=== PATIENT | female | born 1930 | race Caucasian/White ===

== ENCOUNTER 2018-01-25 18:20 | Inpatient (IN) | payer MEDICARE, OTHER ==
[~2018-01-25] VITALS: Ht 165.1 cm; Wt 66.5 kg
[2018-01-25] MEDS ORDERED: SODIUM CHLORIDE FLUSH 10ML SYR IVF ONE (19:00)
[2018-01-25] MEDS ORDERED: MULT-717 PO (19:25)
[2018-01-25] MEDS ORDERED: FOSI40TA2 PO (19:25)
[2018-01-25] MEDS ORDERED: FURO20TA3 PO (19:25)
[2018-01-25] MEDS ORDERED: GLIP5TAB10 PO (19:25)
[2018-01-25] MEDS ORDERED: ALLO300T PO (19:25)
[2018-01-25] MEDS ORDERED: SIMV40TA3 PO (19:25)
[2018-01-25] MEDS ORDERED: SITA50TA PO (19:25)
[2018-01-25 19:26] LABS: BASOPHILS # (AUTO) 0.09 x10^3/uL (0-0.1); BASOPHILS % (AUTO) 1 % (0-1); EOSINOPHILS % (AUTO) 0 % (1-7); LYMPHOCYTES # (AUTO) 0.52 x10^3/uL (1-3.4); LYMPHOCYTES % (AUTO) 5 % (22-44); MD NO; MEAN CORPUSCULAR HEMOGLOBIN 31.7 pg (27.0-34.8); MEAN CORPUSCULAR HGB CONC 33.2 g/dL (32.4-35.8); MEAN CORPUSCULAR VOLUME 95.4 fL (80-100); MEAN PLATELET VOLUME 8.7 fL (7.4-10.4); MONOCYTES # (AUTO) 0.98 x10^3/uL (0.2-0.8); MONOCYTES % (AUTO) 9 % (2-9); NEUTROPHILS # (AUTO) 9.72 x10^3/uL (1.8-6.8); NEUTROPHILS % (AUTO) 86 % (42-75); PLATELET COUNT 309 x10^3/uL (130-400); RED BLOOD COUNT 3.65 x10^6/uL (3.82-5.3); RED CELL DISTRIBUTION WIDTH 14.3 % (9.6-15.2)
[2018-01-25 19:34] LABS: ALBUMIN 2.9 g/dL (3.4-5.0); ANION GAP 12 mmol/L (5-15); CALCIUM 9.3 mg/dL (8.5-10.1); CHLORIDE 103 mmol/L (98-107); INTERNATIONAL NORMALIZED RATIO 0.96 (0.93-1.1)
[2018-01-25 19:41] LABS: CREATININE 2.01 mg/dL (0.55-1.02); TROPONIN I < 0.015 ng/mL (0.000-0.045)
[2018-01-25] MEDS ORDERED: SODIUM CHLORIDE 0.9% 1,000 ML IV ONE (20:25)
[2018-01-25] MEDS ORDERED: MORPHINE SULFATE 4 MG/ML, 1ML IVPush PRN (20:30)
[2018-01-25] MEDS ORDERED: ONDANSETRON ODT 4 MG PO PRN (21:30)
[2018-01-25] MEDS ORDERED: TRAZODONE 50MG TABLET PO PRN (21:30)
[2018-01-25] MEDS ORDERED: ACETAMINOPHEN 325 MG TABLET PO PRN (21:30)
[2018-01-25] MEDS ORDERED: LABETALOL 5MG/ML, 20ML IVPush PRN (21:30)
[2018-01-26] VITALS (7 sets, daily range): BP systolic 56–126; BP diastolic 48–69
[2018-01-26 02:10] LABS: BASOPHILS # (AUTO) 0.08 x10^3/uL (0-0.1); BASOPHILS % (AUTO) 1 % (0-1); EOSINOPHILS # (AUTO) 0.01 x10^3/uL (0-0.4); EOSINOPHILS % (AUTO) 0 % (1-7); LYMPHOCYTES # (AUTO) 1.02 x10^3/uL (1-3.4); LYMPHOCYTES % (AUTO) 10 % (22-44); MD NO; MEAN CORPUSCULAR HEMOGLOBIN 31.8 pg (27.0-34.8); MEAN CORPUSCULAR HGB CONC 33.4 g/dL (32.4-35.8); MEAN CORPUSCULAR VOLUME 95.1 fL (80-100); MEAN PLATELET VOLUME 8.5 fL (7.4-10.4); MONOCYTES # (AUTO) 0.94 x10^3/uL (0.2-0.8); MONOCYTES % (AUTO) 9 % (2-9); NEUTROPHILS # (AUTO) 8.28 x10^3/uL (1.8-6.8); NEUTROPHILS % (AUTO) 80 % (42-75); PLATELET COUNT 285 x10^3/uL (130-400); RED BLOOD COUNT 3.31 x10^6/uL (3.82-5.3); RED CELL DISTRIBUTION WIDTH 14.4 % (9.6-15.2)
[2018-01-26 02:25] LABS: TROPONIN I < 0.015 ng/mL (0.000-0.045)
[2018-01-26 05:48] LABS: CULTURE INDICATED? YES; MICROSCOPIC INDICATED
[2018-01-26] MEDS: INSULIN LISPRO 100 UNITS/ML, PEN SQ-INSULIN SCH ×4 (07:00→21:02)
[2018-01-26 08:00] LABS: CALCIUM 9.4 mg/dL (8.5-10.1); CHOLESTEROL, TOTAL 103 mg/dL (140-239); TRIGLYCERIDES 75 mg/dL (50-200); VLDL CHOLESTEROL 15 mg/dL (0-25)
[2018-01-26] MEDS: CEFTRIAXONE PMX 1GM/50ML 50 ML IV SCH (08:00)
[2018-01-26] MEDS: FOSINOPRIL 20MG TABLET PO SCH (08:00)
[2018-01-26 08:04] LABS: CHOL/HDL RATIO 2.7; HDL CHOL % 37 % (28-40); HDL CHOLESTEROL (DIRECT) 38 mg/dL (40-60); LDL CHOLESTEROL,CALCULATED 50 mg/dL (54-169); LDL/HDL RATIO 1.3 (0.5-3.0); TROPONIN I < 0.015 ng/mL (0.000-0.045)
[2018-01-26 08:10] LABS: ANION GAP 11 mmol/L (5-15); CHLORIDE 107 mmol/L (98-107)
[2018-01-26] MEDS ORDERED: DEXTROSE 4 GM TAB.CHEW PO PRN (12:30)
[2018-01-26] MEDS ORDERED: GLUCAGON 1 MG IM PRN (12:30)
[2018-01-26] MEDS ORDERED: DEXTROSE 50%, 50ML SYRINGE IVPush PRN (12:30)
[2018-01-26] MEDS: SIMVASTATIN 40 MG TABLET PO SCH (21:01)
[2018-01-26] MEDS: SODIUM CHLORIDE FLUSH 10ML SYR IVF SCH (21:02)
[2018-01-27] VITALS (8 sets, daily range): BP systolic 96–123; BP diastolic 54–62
[2018-01-27 05:22] LABS: BASOPHILS # (AUTO) 0.01 x10^3/uL (0-0.1); BASOPHILS % (AUTO) 0 % (0-1); EOSINOPHILS % (AUTO) 0 % (1-7); LYMPHOCYTES # (AUTO) 1.26 x10^3/uL (1-3.4); LYMPHOCYTES % (AUTO) 11 % (22-44); MD NO; MEAN CORPUSCULAR HEMOGLOBIN 30.9 pg (27.0-34.8); MEAN CORPUSCULAR HGB CONC 32.7 g/dL (32.4-35.8); MEAN CORPUSCULAR VOLUME 94.5 fL (80-100); MEAN PLATELET VOLUME 9.2 fL (7.4-10.4); MONOCYTES # (AUTO) 0.99 x10^3/uL (0.2-0.8); MONOCYTES % (AUTO) 9 % (2-9); NEUTROPHILS # (AUTO) 9.08 x10^3/uL (1.8-6.8); NEUTROPHILS % (AUTO) 80 % (42-75); PLATELET COUNT 295 x10^3/uL (130-400); RED CELL DISTRIBUTION WIDTH 14.3 % (9.6-15.2)
[2018-01-27 05:38] LABS: CHLORIDE 107 mmol/L (98-107)
[2018-01-27 05:48] LABS: ALANINE AMINOTRANSFERASE 74 U/L (12-78); ALBUMIN 2.1 g/dL (3.4-5.0); ALKALINE PHOSPHATASE 77 U/L (45-117); ANION GAP 10 mmol/L (5-15); BILIRUBIN,TOTAL 0.5 mg/dL (0.2-1.0); CALCIUM 9.1 mg/dL (8.5-10.1); CREATININE 1.64 mg/dL (0.55-1.02); TOTAL PROTEIN 6.7 g/dL (6.4-8.2)
[2018-01-27] MEDS: CEFTRIAXONE PMX 1GM/50ML 50 ML IV SCH (06:56)
[2018-01-27] MEDS: INSULIN LISPRO 100 UNITS/ML, PEN SQ-INSULIN SCH ×4 (07:00→20:04)
[2018-01-27] MEDS: FOSINOPRIL 20MG TABLET PO SCH (07:44)
[2018-01-27] MEDS: SODIUM CHLORIDE FLUSH 10ML SYR IVF SCH ×2 (07:45→20:05)
[2018-01-27] MEDS: SIMVASTATIN 40 MG TABLET PO SCH (20:05)
[2018-01-28 01:07] VITALS: BP 100/62
[2018-01-28 05:14] LABS: BASOPHILS # (AUTO) 0.05 x10^3/uL (0-0.1); BASOPHILS % (AUTO) 1 % (0-1); EOSINOPHILS # (AUTO) 0.16 x10^3/uL (0-0.4); EOSINOPHILS % (AUTO) 2 % (1-7); LYMPHOCYTES # (AUTO) 1.52 x10^3/uL (1-3.4); LYMPHOCYTES % (AUTO) 16 % (22-44); MD NO; MEAN CORPUSCULAR HEMOGLOBIN 31.8 pg (27.0-34.8); MEAN CORPUSCULAR HGB CONC 32.9 g/dL (32.4-35.8); MEAN CORPUSCULAR VOLUME 96.5 fL (80-100); MEAN PLATELET VOLUME 9.3 fL (7.4-10.4); MONOCYTES # (AUTO) 0.62 x10^3/uL (0.2-0.8); MONOCYTES % (AUTO) 6 % (2-9); NEUTROPHILS # (AUTO) 7.31 x10^3/uL (1.8-6.8); NEUTROPHILS % (AUTO) 76 % (42-75); PLATELET COUNT 277 x10^3/uL (130-400); RED BLOOD COUNT 3.24 x10^6/uL (3.82-5.3); RED CELL DISTRIBUTION WIDTH 14.6 % (9.6-15.2)
[2018-01-28 05:23] LABS: CHLORIDE 109 mmol/L (98-107)
[2018-01-28 05:29] LABS: ALANINE AMINOTRANSFERASE 159 U/L (12-78); ALBUMIN 1.9 g/dL (3.4-5.0); ALKALINE PHOSPHATASE 91 U/L (45-117); ANION GAP 8 mmol/L (5-15); BILIRUBIN,TOTAL 0.5 mg/dL (0.2-1.0); CREATININE 1.45 mg/dL (0.55-1.02); TOTAL PROTEIN 6.2 g/dL (6.4-8.2)
[2018-01-28 06:58] VITALS: BP 101/57
[2018-01-28] MEDS: INSULIN LISPRO 100 UNITS/ML, PEN SQ-INSULIN SCH ×2 (07:00→11:00)
[2018-01-28] MEDS: SODIUM CHLORIDE FLUSH 10ML SYR IVF SCH (08:06)
[2018-01-28] MEDS: CEFTRIAXONE PMX 1GM/50ML 50 ML IV SCH (08:06)
[2018-01-28] MEDS: FOSINOPRIL 20MG TABLET PO SCH (08:07)
[2018-01-28] MEDS ORDERED: AMOX1TAB64 PO (10:21)
== END 2018-01-28 12:49 | disposition home health service (06) | DRG 682 ==
LOC: ED 19:00 → EDIP 21:04 → 4WST 21:29 → DCLOUNGE 01-28 12:41
PROVIDERS: ADMIT Internal Medicine; ATTEND Internal Medicine
DX: N17.0 Acute kidney failure with tubular necrosis (principal); E43 Unspecified severe protein-calorie malnutrition; E11.22 Type 2 diabetes mellitus with diabetic chronic kidney disease; E11.65 Type 2 diabetes mellitus with hyperglycemia; N39.0 Urinary tract infection, site not specified; M06.9 Rheumatoid arthritis, unspecified; R55 Syncope and collapse; R42 Dizziness and giddiness; R00.2 Palpitations; W18.30XA Fall on same level, unspecified, initial encounter; E78.5 Hyperlipidemia, unspecified; G89.11 Acute pain due to trauma; I12.9 Hypertensive chronic kidney disease with stage 1 through stage 4 chronic kidney disease, or unspecified chronic kidney disease; N18.9 Chronic kidney disease, unspecified; Z82.49 Family history of ischemic heart disease and other diseases of the circulatory system; Z90.710 Acquired absence of both cervix and uterus; Y93.89 Activity, other specified; Y92.049 Unspecified place in boarding-house as the place of occurrence of the external cause; Y99.8 Other external cause status
CPT/HCPCS: 36415; 71045; 80048; 80053; 80061; 81001; 82040; 82962; 83036; 83735; 84484; 85025; 85610; 85730; 87040; 87086; 93005; 93306; 93880; 99285; J0696; J1815

== ENCOUNTER 2018-02-12 12:02 | Inpatient (IN) | payer MEDICARE ==
[~2018-02-12] VITALS: Ht 162.6 cm; Wt 71.5 kg
[~2018-02-12 12:02] MED LIST: ALLO300T PO; AMOX1TAB64 PO; FOSI40TA2 PO; FURO20TA3 PO; GLIP5TAB10 PO; MULT-717 PO; SIMV40TA3 PO; SITA50TA PO
[2018-02-12] MEDS ORDERED: SODIUM CHLORIDE 0.9% 1,000 ML IV ONE (12:04)
[2018-02-12] MEDS ORDERED: PLEASE ENTER HEIGHT AND WEIGHT MC SCH (12:30)
[2018-02-12] MEDS ORDERED: SODIUM CHLORIDE FLUSH 10ML SYR IVF ONE (12:30)
[2018-02-12 12:47] LABS: BASOPHILS % (AUTO) 0 % (0-1); EOSINOPHILS # (AUTO) 0.01 x10^3/uL (0-0.4); EOSINOPHILS % (AUTO) 0 % (1-7); LYMPHOCYTES % (AUTO) 3 % (22-44); MD NO; MEAN CORPUSCULAR HGB CONC 32.9 g/dL (32.4-35.8); MEAN CORPUSCULAR VOLUME 94.3 fL (80-100); MEAN PLATELET VOLUME 8.2 fL (7.4-10.4); MONOCYTES # (AUTO) 0.66 x10^3/uL (0.2-0.8); MONOCYTES % (AUTO) 5 % (2-9); NEUTROPHILS # (AUTO) 12.23 x10^3/uL (1.8-6.8); NEUTROPHILS % (AUTO) 92 % (42-75); PLATELET COUNT 369 x10^3/uL (130-400); RED BLOOD COUNT 3.47 x10^6/uL (3.82-5.3); RED CELL DISTRIBUTION WIDTH 15.6 % (9.6-15.2)
[2018-02-12 12:55] LABS: INTERNATIONAL NORMALIZED RATIO 0.92 (0.93-1.1); PROTHROMBIN TIME 9.6 Seconds (9.6-11.5)
[2018-02-12 12:59] LABS: ALANINE AMINOTRANSFERASE 69 U/L (12-78); ALBUMIN 2.3 g/dL (3.4-5.0); ANION GAP 9 mmol/L (5-15); CALCIUM 8.6 mg/dL (8.5-10.1); CHLORIDE 109 mmol/L (98-107); CREATININE 1.54 mg/dL (0.55-1.02)
[2018-02-12 13:03] LABS: ALKALINE PHOSPHATASE 74 U/L (45-117); BILIRUBIN,TOTAL 0.5 mg/dL (0.2-1.0); TROPONIN I < 0.015 ng/mL (0.000-0.045)
[2018-02-12 13:49] LABS: MICROSCOPIC NOT IND
[2018-02-12 13:58] LABS: CULTURE INDICATED? NO
[2018-02-12] MEDS ORDERED: SODIUM CHLORIDE FLUSH 10ML SYR IVF PRN (14:30)
[2018-02-12] MEDS: SODIUM CHLORIDE 0.9% 1,000 ML IV SCH (15:03)
[2018-02-12] MEDS ORDERED: METOPROLOL 1 MG/ML, 5ML IVPush PRN (15:30)
[2018-02-12 16:08] LABS: CLOSTRIDIUM DIFFICILE ANTIGEN NEGATIVE; CLOSTRIDIUM DIFFICILE TOXIN NEGATIVE (Negative)
[2018-02-12 16:58] VITALS: BP 120/69
[2018-02-12] MEDS: INSULIN LISPRO 100 UNITS/ML, PEN SQ-INSULIN SCH ×2 (17:26→20:59)
[2018-02-12 19:14] LABS: TROPONIN I < 0.015 ng/mL (0.000-0.045)
[2018-02-12 19:42] VITALS: BP 112/66
[2018-02-12] MEDS: SIMVASTATIN 40 MG TABLET PO SCH (20:52)
[2018-02-12] MEDS: APIXABAN 2.5 MG TABLET PO SCH (20:52)
[2018-02-13 00:52] LABS: TROPONIN I < 0.015 ng/mL (0.000-0.045)
[2018-02-13 02:58] VITALS: BP 105/60
[2018-02-13] MEDS: SODIUM CHLORIDE 0.9% 1,000 ML IV SCH (05:04)
[2018-02-13 05:58] LABS: MEAN CORPUSCULAR HEMOGLOBIN 31.1 pg (27.0-34.8); MEAN CORPUSCULAR VOLUME 94.4 fL (80-100); MEAN PLATELET VOLUME 8.1 fL (7.4-10.4); PLATELET COUNT 285 x10^3/uL (130-400); RED BLOOD COUNT 3.02 x10^6/uL (3.82-5.3); RED CELL DISTRIBUTION WIDTH 14.8 % (9.6-15.2)
[2018-02-13 06:07] LABS: ALBUMIN 1.8 g/dL (3.4-5.0); ANION GAP 8 mmol/L (5-15); CALCIUM 8.7 mg/dL (8.5-10.1); CHLORIDE 114 mmol/L (98-107)
[2018-02-13 06:19] LABS: ALANINE AMINOTRANSFERASE 52 U/L (12-78); ALKALINE PHOSPHATASE 58 U/L (45-117); BILIRUBIN,TOTAL 0.5 mg/dL (0.2-1.0); CHOL/HDL RATIO 3.1; CHOLESTEROL, TOTAL 104 mg/dL (140-239); CREATININE 1.22 mg/dL (0.55-1.02); HDL CHOL % 33 % (28-40); HDL CHOLESTEROL (DIRECT) 34 mg/dL (40-60); LDL CHOLESTEROL,CALCULATED 56 mg/dL (54-169); LDL/HDL RATIO 1.6 (0.5-3.0); THYROID STIMULATING HORMONE 0.977 mIU/L (0.358-3.740); TOTAL PROTEIN 5.7 g/dL (6.4-8.2); TRIGLYCERIDES 69 mg/dL (50-200); VLDL CHOLESTEROL 14 mg/dL (0-25)
[2018-02-13 06:28] LABS: BASOPHILS # (AUTO) 0.04 x10^3/uL (0-0.1); BASOPHILS % (AUTO) 0 % (0-1); EOSINOPHILS # (AUTO) 0.01 x10^3/uL (0-0.4); EOSINOPHILS % (AUTO) 0 % (1-7); LYMPHOCYTES % (AUTO) 8 % (22-44); MD SCAN; MONOCYTES % (AUTO) 5 % (2-9); NEUTROPHILS # (AUTO) 11.71 x10^3/uL (1.8-6.8); NEUTROPHILS % (AUTO) 86 % (42-75)
[2018-02-13] MEDS: INSULIN LISPRO 100 UNITS/ML, PEN SQ-INSULIN SCH ×4 (07:00→20:43)
[2018-02-13 07:14] VITALS: BP 105/63
[2018-02-13] MEDS: ALLOPURINOL 300 MG TABLET PO SCH (09:18)
[2018-02-13] MEDS: MULTIVITAMINS/MINERALS TABLET PO SCH (09:18)
[2018-02-13] MEDS: APIXABAN 2.5 MG TABLET PO SCH ×2 (09:18→20:42)
[2018-02-13 11:51] VITALS: BP_SYST 111; BP_SYST 125; BP_SYST 134; BP_DIAS 50; BP_DIAS 68; BP_DIAS 70
[2018-02-13 14:33] VITALS: BP_SYST 114; BP_SYST 127; BP_SYST 136; BP_DIAS 53; BP_DIAS 69; BP_DIAS 72
[2018-02-13] MEDS ORDERED: SODIUM CHLORIDE 0.9% 1,000 ML IV SCH (15:03)
[2018-02-13] MEDS: ACETAMINOPHEN 325 MG TABLET PO PRN (18:04)
[2018-02-13 19:22] VITALS: BP 112/58
[2018-02-13] MEDS: SIMVASTATIN 40 MG TABLET PO SCH (20:42)
[2018-02-14 00:51] VITALS: BP 112/60
[2018-02-14 05:58] LABS: BASOPHILS # (AUTO) 0.04 x10^3/uL (0-0.1); BASOPHILS % (AUTO) 0 % (0-1); EOSINOPHILS # (AUTO) 0.24 x10^3/uL (0-0.4); EOSINOPHILS % (AUTO) 2 % (1-7); LYMPHOCYTES # (AUTO) 1.09 x10^3/uL (1-3.4); LYMPHOCYTES % (AUTO) 9 % (22-44); MD NO; MEAN CORPUSCULAR HEMOGLOBIN 31.4 pg (27.0-34.8); MEAN CORPUSCULAR HGB CONC 32.8 g/dL (32.4-35.8); MEAN CORPUSCULAR VOLUME 95.5 fL (80-100); MEAN PLATELET VOLUME 8.1 fL (7.4-10.4); MONOCYTES # (AUTO) 0.43 x10^3/uL (0.2-0.8); MONOCYTES % (AUTO) 4 % (2-9); NEUTROPHILS # (AUTO) 10.26 x10^3/uL (1.8-6.8); NEUTROPHILS % (AUTO) 85 % (42-75); PLATELET COUNT 318 x10^3/uL (130-400); RED BLOOD COUNT 2.96 x10^6/uL (3.82-5.3); RED CELL DISTRIBUTION WIDTH 14.9 % (9.6-15.2)
[2018-02-14 06:04] LABS: ANION GAP 8 mmol/L (5-15); CALCIUM 8.2 mg/dL (8.5-10.1); CHLORIDE 115 mmol/L (98-107)
[2018-02-14 06:26] LABS: HEMOGLOBIN A1C 7.4 % (4.2-6.3)
[2018-02-14 06:34] LABS: % IRON SATURATION 18 % (20-55); CREATININE 0.98 mg/dL (0.55-1.02); IRON LEVEL 24 mcg/dL (50-170); TOTAL IRON BINDING CAPACITY 135 mcg/dL (250-450)
[2018-02-14 06:35] LABS: FOLATE LEVEL > 20.0 ng/mL (3.1-17.5)
[2018-02-14] MEDS: INSULIN LISPRO 100 UNITS/ML, PEN SQ-INSULIN SCH ×2 (07:00→11:53)
[2018-02-14 08:00] VITALS: BP 139/67
[2018-02-14] MEDS ORDERED: FERROUS SULFATE 325 MG TABLET PO SCH (08:00)
[2018-02-14] MEDS: ALLOPURINOL 300 MG TABLET PO SCH (09:00)
[2018-02-14] MEDS: MULTIVITAMINS/MINERALS TABLET PO SCH (09:00)
[2018-02-14] MEDS: APIXABAN 2.5 MG TABLET PO SCH (09:00)
[2018-02-14] MEDS: ACETAMINOPHEN 325 MG TABLET PO PRN (10:39)
[2018-02-14 13:07] VITALS: BP 110/54
[2018-02-14 13:08] VITALS: BP 114/64
[2018-02-14 13:09] VITALS: BP 135/67
[2018-02-14] MEDS ORDERED: FERR-51 PO (13:16)
[2018-02-14 13:40] VITALS: BP 124/70
== END 2018-02-14 15:30 | DRG 73 ==
LOC: ED 14:23 → EDIP 14:29 → 4WST 16:25
PROVIDERS: ADMIT Internal Medicine Pulmonary Disease; ATTEND Internal Medicine Pulmonary Disease
DX: G90.8 Other disorders of autonomic nervous system (principal); G93.40 Encephalopathy, unspecified; N17.9 Acute kidney failure, unspecified; E44.0 Moderate protein-calorie malnutrition; D68.69 Other thrombophilia; E11.22 Type 2 diabetes mellitus with diabetic chronic kidney disease; I48.91 Unspecified atrial fibrillation; N18.3 Chronic kidney disease, stage 3 (moderate); R56.9 Unspecified convulsions; D64.9 Anemia, unspecified; E78.5 Hyperlipidemia, unspecified; Z68.27 Body mass index [BMI] 27.0-27.9, adult; H91.90 Unspecified hearing loss, unspecified ear; I13.10 Hypertensive heart and chronic kidney disease without heart failure, with stage 1 through stage 4 chronic kidney disease, or unspecified chronic kidney disease; M06.9 Rheumatoid arthritis, unspecified; M19.90 Unspecified osteoarthritis, unspecified site; Z79.84 Long term (current) use of oral hypoglycemic drugs; Z82.49 Family history of ischemic heart disease and other diseases of the circulatory system; Z90.710 Acquired absence of both cervix and uterus
CPT/HCPCS: 36415; 70450; 70553; 71045; 80048; 80053; 80061; 81003; 82607; 82746; 82962; 83036; 83540; 83550; 83605; 84443; 84484; 85025; 85610; 85730; 87040; 87324; 89055; 93005; 95819; 96360; 96361; J1815; J7030